=== PATIENT | male | born 1955 | race African-American/Black ===

== ENCOUNTER 2022-06-19 17:08 | Emergency (ER) | payer MEDICAID ==
[~2022-06-19] VITALS: Ht 162.6 cm; Wt 75.0 kg
[2022-06-19] VITALS (11 sets, daily range): BP systolic 128–192; BP diastolic 79–101
[~2022-06-19 17:08] MED LIST: CATAPRES0.1 MG PO; LISINOPRIL20 M1 PO; MOTRIN800 MG PO; NO HOME MEDS; PROAIR HFA IN; ULTRAM50 MG OR
[2022-06-19] MEDS ORDERED: BP MED (17:36)
[2022-06-19 17:55] LABS: HEMATOCRIT 40.1 % (39.0-50.0); HEMOGLOBIN 13.3 g/dl (14.0-18.0); IMMATURE GRANULOCYTES 0.4 % (0.0-5.0); MEAN CELL VOLUME 88.3 fL CALC (80.0-100.0); MEAN CORPUSCULAR HGB 29.3 pG CALC (26.0-32.0); MEAN CORPUSCULAR HGB CONC 33.2 g/dL CAL (32.0-36.0); NEUT# 4.97 thou/uL (1.82-7.42); RED BLOOD COUNT 4.54 mill/uL (4.70-6.10); RED CELL DISTRI WIDTH 14.1 % (11.5-15.5)
[2022-06-19 18:03] LABS: ALBUMIN 4.7 g/dL (3.2-5.0); ALKALINE PHOSPHATASE 66 u/l (38-126); ANION GAP 15 (6-22 (CALC)); BILIRUBIN, TOTAL 0.2 mg/dL (0.0-1.4); BUN 15 mg/dL (8-23); BUN/CREATININE RATIO 19 (12-20 (CALC)); CARBON DIOXIDE 23 mmol/l (22-30); CHLORIDE 104 mmol/l (95-108); CREATININE 0.8 mg/dL (0.7-1.3); GFR FOR AFR.AMER. > 60 ML/MIN (>=60 (CALC)); GFR OTHER RACES > 60 ML/MIN (>=60 (CALC)); POTASSIUM 3.4 mmol/l (3.5-5.1); SGOT/AST 37 u/l (19-48); SODIUM 138 mmol/l (137-146); TOTAL PROTEIN 8.5 g/dL (6.3-8.2)
[2022-06-19] MEDS ORDERED: VOLTAREN75 MG PO (19:37)
== END 2022-06-19 19:55 | disposition home or self-care (01) ==
LOC: ED 17:08
PROVIDERS: Family Medicine
DX: R07.89 Other chest pain (principal); I10 Essential (primary) hypertension; F10.20 Alcohol dependence, uncomplicated; F17.210 Nicotine dependence, cigarettes, uncomplicated